=== PATIENT | male | born 1965 | race Caucasian/White ===

== ENCOUNTER 2025-11-21 01:16 | Day surgery (SDC) | payer OTHER, SELFPAY ==
[2025-10-30 09:09] VITALS: BMI 28.5
--- OUTSIDE RECORDS SUMMARY | 2025-11-21 01:19 | XMS_ITS | Encounter Summary ---
Author Organization [facility] Address [address] [place] [address] Care Team Providers Care Installer Metal Flooring Name Role Phone Rosas Crespo SNUBBER Primary Care Provider + Encounter Details Date Type Department Care Team (Latest Contact Info) Description 09/28/2018 Abstract [facility] James MD Social History Tobacco Use Types Packs/Day Years Used Date Smoking Tobacco: Never Assessed Sex and Gender Information Value Date Recorded Sex Assigned at Not on file Legal Sex Male 8:27 PM CDT Gender Identity Not on file Sexual Orientation Not on file documented as of this encounter Plan of Treatment Not on file documented as of this encounter Visit Diagnoses Not on filedocumented in this encounter Care Teams Installer Metal Flooring Relationship Specialty Start Date End Date Rosas Crespo NP [facility] [place] [address] PCP - General UNKNOWN PHYSICIAN SPECIALTY 06/25/23 documented as of this encounter
--- OUTSIDE RECORDS SUMMARY | 2025-11-21 01:19 | XMS_ITS | Clinical Summary ---
Author Organization [facility] Address [address] [place] [address] Care Team Providers Care Correctional Substance Abuse Counselor Name Role Phone Rosas Crespo ASSISTANT SIGNAL MAINTAINER Primary Care Provider + Social History Tobacco Use Types Packs/Day Years Used Date Smoking Tobacco: Never Assessed Sex and Gender Information Value Date Recorded Sex Assigned at Not on file Legal Sex Male 8:27 PM CDT Gender Identity Not on file Sexual Orientation Not on file Last Filed Vital Signs Vital Sign Reading Time Taken Comments Blood Pressure 130/90 04/12/2013 5:07 PM CDT Pulse 77 04/12/2013 5:07 PM CDT Temperature - - Respiratory Rate - - Oxygen Saturation - - Inhaled Oxygen Concentration - - Weight 90.7 kg (200 lb) 04/12/2013 5:07 PM CDT Height 180.3 cm (5' 11) 04/12/2013 5:07 PM CDT Body Mass Index 27.89 04/12/2013 5:07 PM CDT Plan of Treatment Health Maintenance Due Date Last Done Comments Colorectal Cancer Screening Colonoscopy (10 Years) 1965 Annual Physical 1968 Hepatitis C 1983 DTaP, Tdap and Td Vaccines (2 - Tdap) 03/16/1990 03/16/1980 Pneumococcal Vaccine: 50+ Years (1 of 1 - PCV) 2015 Zoster Vaccines (1 of 2) 2015 COVID-19 Vaccine (6 - season) 2025 08/10/2022, 08/07/2021, 07/10/2021, Additional history exists Influenza Adult (#1) 2025 08/10/2022, 08/31/20 18 Hepatitis A Vaccines Aged Out No long er eligible based on patient's age to complete this topic Meningococcal B Vaccine Aged Out No l onger eligible based on patient's age to complete this topic Meningococcal Vaccine Aged Out No brisa sahra eligible based on patient's age to complete this topic RSV Immunizations Under 20 Months Aged Out No longer eligible based on patient's age to complete this topic Insurance Care Teams Correctional Substance Abuse Counselor Relationship Specialty Start Date End Date Rosas Crespo NP [facility] [place] [address] PCP - General UNKNOWN PHYSICIAN SPECIALTY 06/25/23
--- OUTSIDE RECORDS SUMMARY | 2025-11-21 01:19 | XMS_ITS | Clinical Summary ---
Author Organization [facility] [employer] [facility] Address [address] [place] [address] Care Team Providers Care Manual Winder Name Role Phone Unavailable Primary Care Provider Unavailabl e Social History Tobacco Use Types Packs/Day Years Used Date Smoking Tobacco: Never Assessed Sex and Gender Information Value Date Recorded Sex Assigned at Not on file Legal Sex Male 12:32 PM EST Gender Identity Not on file Sexual Orientation Not on file Plan of Treatment Not on file Medical Devices Not on file
--- OUTSIDE RECORDS SUMMARY | 2025-11-21 01:19 | XMS_ITS | Clinical Summary ---
Author Organization [facility] Address [address] [place] [address] Care Team Providers Care Burner Machine Operator Name Role Phone [facility] Primary Care Provider Allergies No known active allergies Medications amLODIPine (NORVASC) 2.5 mg tablet Take 1 tablet (2.5 mg total) by mouth daily 10/28/2022 Active atorvastatin (LIPITOR) 40 mg tablet 10/27/2022 Active dicyclomine (BENTYL) 20 mg tablet TAKE 2 TABLET BY MOUTH EVERY MORNING AND 1 TABLET BY MOUTH EVERY EVENING 10/31/2022 Active finasteride (PROSCAR) 5 mg tablet 10/08/2022 Active hydroCHLOROthia zide (HYDRODIURIL) 25 mg tablet 10/27/2022 Active lisinopriL (PRINIVIL,ZESTR IL) 20 mg tablet 10/27/[address] (PROTONIX) 40 mg EC tablet 11/25/2022 Active gabapentin (NEURONTIN) 300 mg capsuleIndicati ons:Neuropathic Pain Take 1 capsule (300 mg total) by mouth 3 (three) times a day 90 capsule 1 12/16/2022 Active traMADoL (ULTRAM) 50 mg tablet Take 1 tablet (50 mg total) by mouth 4 (four) times a day as needed for pain 28 tablet 01/26/2023 Active alfuzosin HCl (ALFUZOSIN ORAL) Active docusate sodium (COLACE) 100 mg capsule Active ibuprofen (ADVIL,MOTRIN) 800 mg tablet 05/19/2023 Activ e cyclobenzaprine (FLEXERIL) 10 mg tablet TAKE 1 TABLET BY MOUTH THREE TIMES DAILY FOR 3 DAYS NEEDED FOR SPASM 05/19/2023 Active traMADoL (ULTRAM) 50 mg tablet Take 1 tablet (50 mg total) by mouth every 6 (six) hours as needed for pain for up to 10 days 20 tablet 07/15/2023 Active Active Problems Problem Noted Date Diagnosed Date Arthralgia of shoulder 04/23/2016 Surgical History Surgery Date Site/Laterality Comments KNEE ARTHROSCOPY W/ LATERAL RELEASE FLUORO GUIDED INJECTION SHOULDER RIGHT 07/31/2023 [facility] Medical History Medical History Date Comments GERD (gastroesophageal reflux disease) over 25 y ears Hypertension +/- 14 or 15 years Sleep apnea 7-8 years Family History Medical History Relation Name Comments Cancer Father melanoma Family history of malignant neoplasm - (Added by TW Conv) Hypertension Mother hbp Cancer Other Family history of malignant neoplasm - Relation: Grandparent (Added by TW Conv) Cancer Paternal Grandfather colon Relation Name Status Comments Father melanoma Mother hbp Other Paternal Grandfather colon Social History Tobacco Use Types Packs/Day Years Used Date Smoking Tobacco: Never Smokeless Tobacco: Never Tobacco Cessation:Counseling Given: Not Answered Personal Safety Answer Date Recorded Getting School Help Needed Not on file 07/31 Sex and Gender Information Value Date Recorded Sex Assigned at Not on file 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 Gender Identity Not on file Sexual Orientation Not on file Last Filed Vital Signs Vital Sign Reading Time Taken Comments Blood Pressure 142/86 07/31/2023 10:20 AM CDT Pulse 90 07/31/2023 10:20 AM CDT Temperature - - Respiratory Rate 20 07/31/2023 10:20 AM CDT Oxygen Saturation 97% 07/31/2023 10:20 AM CDT Inhaled Oxygen Concentration - - Weight - - Height - - Body Mass Index - - Plan of Treatment Health Maintenance Due Date Last Done Comments Colon Cancer Screening-Colonoscopy 1965 Depression Screening 1965 Hepatitis C Screening 1965 Prostate Cancer Screening-PSA 1965 Hepatitis B Screening 1983 Regular Well Visit/Exam 18-64 1983 DTaP/Tdap/Td Vaccine (2 - Tdap) 03/16/1990 03/16/1980 Zoster Vaccine (1 of 2) 2015 Covid-19 Vaccine ( season) 2025 08/10/2022, 08/07/2021, 07/10/2021, Additional history exists Influenza Vaccine (#1) 2025 08/10/2022, 2017 Pneumococcal vaccine <65 Aged Out No longer eligible based on patient's age to complete this topic Insurance [facility] Care Teams Burner Machine Operator Relationship Specialty Start Date End Date Base, [facility] [address] [place] [address] PCP - General 10/27/22
[2025-11-21 09:16] VITALS: BP 150/95; PULSE 72; RESP 16; TEMP 36.2; O2SAT 99
[2025-11-21 09:17] VITALS: BMI 28.4
[2025-11-21] MEDS: LACTATED RINGERS 1,000 ML 150 ML IV CONT (09:23)
--- NOTE | 2025-11-21 09:27 | WPDANESEPPF ---
Anes - Initial Pre Proc Eval Procedure: Operation Date: 11/21/25 10:30 Proposed Procedures p EGD & Screening Colonoscopy - Geovany Vaca MD Date/Time: 11/21/25 09:27 Surgeon: Geovany Vaca MD Pre Op Diagnosis: Gastro-esophageal reflux disease without esophagit Patient Data Age: 59 Gender: M Height: 1.8 m Weight: 92.5 kg Last Vital Signs Temp 36.2 C L 11/21/25 09:16 Pulse 72 11/21/25 09:16 Resp 16 11/21/25 09:16 BP 150/95 H 11/21/25 09:16 Pulse Ox 99 11/21/25 09:16 O2 Del Method Room Air 11/21/25 09:16 Allergies Allergy/AdvReac Type Severity Reaction Status Date / Time No Known Allergies Allergy Unknown Verified 11/21/25 09:13 Home Medications ?Medication ?Instructions ?Recorded ?Confirmed ?Type atorvastatin 40 mg tablet 40 mg PO DAILY 10/30/25 11/21/25 History dicyclomine 20 mg tablet 40 mg PO BID 10/30/25 11/21/25 History finasteride 5 mg tablet 5 mg PO DAILY 10/30/25 11/21/25 History fluoxetine 10 mg capsule 40 mg PO DAILY 10/30/25 11/21/25 History lisinopril 20 1 tablet PO BID 10/30/25 11/21/25 History mg-hydrochlorothiazide 12.5 mg tablet pantoprazole 40 mg tablet,delayed 40 mg PO BID 10/30/25 11/21/25 History release Patient hx anesthesia problems: none Family hx anesthesia problems: none Results Review: All pre-operative results and documents have been reviewed as part of the pre-operative evaluation. [facility] Past Medical History Medical History (Updated 11/21/25 @ 09:28 by Luis Lau DO) GERD (gastroesophageal reflux disease) ZION (obstructive sleep apnea) Hypertension Hyperlipidemia Family History Family History (System 10/09/22 @ 15:21 by Shefali Anna) Grandparent Carcinoma of colon Father Family history of malignant melanoma Social History Social History (Updated 11/21/25 @ 09:31 by Luis Lau DO) Smoking status: Never smoker Alcohol intake: current Alcohol use details: 2-3 most days Substance use type: does not use Living arrangements: with family Spiritual care concerns: No Anes - Eval Final PreProcedure Day of Procedure 11/21/25 09:27 Patient weight: overweight Heart: regular rate and rhythm Lungs: clear to auscultation Airway: Mallampati scale class II Neurological: alert and oriented Last oral intake: >/= 8 hours ASA classification: III Emergent: no Anesthetic plan: proceed Anesthesia type and monitoring: general GIVS and standard monitoring Results Review: All pre-operative results and documents have been reviewed as part of the pre-operative evaluation. Informed Consent: The patient's anesthetic plan and its attendant risks and benefits were discussed with the patient/family/POA. Questions were solicited and answers provided to the satisfaction of the patient/family/POA.
--- NOTE | 2025-11-21 09:37 | PM.HPGS ---
History of Present Illness History of Present Illness Consent: Risks, benefits, and alternatives have been discussed and questions answered. Patient agrees to proceed with procedure. Chief complaint: Gastro-esophageal reflux disease without esophagit Narrative: Elmer Snow Jr. is a 59 year old male with a history of chronic GERD. Patient also had history of colonic cancer and colonic polyps in the past. Review of Systems Review of Systems: All 11 of your symptoms and negative except the ones mentioned in the H&P. [facility] Past Medical History Medical History (Updated 11/21/25 @ 09:41 by Juan Whaley MD) History of colon cancer GERD (gastroesophageal reflux disease) ZION (obstructive sleep apnea) Hypertension Hyperlipidemia Family History Family History (System 10/09/22 @ 15:21 by Shefali Anna) Grandparent Carcinoma of colon Father Family history of malignant melanoma Social History Social History (Updated 11/21/25 @ 09:31 by Luis Lau, ) Smoking status: Never smoker Alcohol intake: current Alcohol use details: 2-3 most days Substance use type: does not use Living arrangements: with family Spiritual care concerns: No Meds Home Medications and Allergies Home Medications ?Medication ?Instructions ?Recorded ?Confirmed ?Type atorvastatin 40 mg tablet 40 mg PO DAILY 10/30/25 11/21/25 History dicyclomine 20 mg tablet 40 mg PO BID 10/30/25 11/21/25 History finasteride 5 mg tablet 5 mg PO DAILY 10/30/25 11/21/25 History fluoxetine 10 mg capsule 40 mg PO DAILY 10/30/25 11/21/25 History lisinopril 20 1 tablet PO BID 10/30/25 11/21/25 History mg-hydrochlorothiazide 12.5 mg tablet pantoprazole 40 mg tablet,delayed 40 mg PO BID 10/30/25 11/21/25 History release Allergies Allergy/AdvReac Type Severity Reaction Status Date / Time No Known Allergies Allergy Unknown Verified 11/21/25 09:13 Vital Signs Vital Signs - 24 hr 11/21/25 09:16 Temperature 97.1 F L Pulse Rate 72 Respiratory Rate 16 Blood Pressure 150/95 H Pulse Oximetry 99 Oxygen Delivery Room Air Exam Narrative: Patient is lying comfortably in bed. Const: General: comfortable HENMT: Face/Nose/Sinus: Normal nares present Other: HEENT within normal. Neck: Neck: supple Chest: Other: Clear to auscultation. Resp: Auscultation: clear to auscultation bilaterally Cardio: Rate: regular rate (Regular S1-S2) GI: GI Palp: Yes Soft to palpation Auscultation: normal bowel sounds Skin: General skin exam: normal color Assessment and Plan Assessment and plan (1) Chronic GERD: Code(s): K21.9 - Gastro-esophageal reflux disease without esophagitis Status: Acute Plan 59-year-old male with history of chronic GERD. Patient also had history of colon cancer in the past and had a multiple colonoscopy with polyp removed from the colon. He is here for EGD and colonoscopy today.
[2025-11-21] MEDS: BENZOCAINE (*SP) 60 ML SPRAY CAN (HURRICAINE) 1 SPRAY MUCOUS MEM (09:42)
--- NOTE | 2025-11-21 09:57 | SUR.OPER ---
EGD ended 952 colonoscopy started 956
--- NOTE | 2025-11-21 10:04 | S_PTH ---
PATIENT: Elmer Snow Jr. LOC: [facility] Blum#:[id number] AGE/SX: 59/M ROOM: RE11/21/[address]: Geovany Vaca MD : 1965 BED: DIS: 11/21/2025 SPEC #: [id number] RECD: 11/21/25 10:32 STATUS: ELLIOTT REEliot #: [id number] JUDITH: 11/21/25 10:[address]: Juan Whaley DEPT: [facility] Surgical RECD BY: Elías Mondragon ENTERED: 11/21/25 10:33 SP TYPE: Surgical OTHR DR: Geovany Vaca MD [facility] Tissues: A - Biopsy B - Biopsy C - Gastric Polyp D - Colon Polypectomy Procedures: Hematoxylin and Eosin Stain Gross and Microscopic Level 4
[2025-11-21 10:10] VITALS: BP 131/77; PULSE 66; RESP 16; O2SAT 97
[2025-11-21 10:20] VITALS: BP 135/86; PULSE 59; RESP 13; O2SAT 98
[2025-11-21 10:30] VITALS: BP 140/91; PULSE 62; RESP 20; O2SAT 99
== END 2025-11-21 10:40 | disposition home or self-care (01) ==
PROVIDERS: Internal Medicine Gastroenterology; Visit Provider Internal Medicine Gastroenterology
PROC: 0DJ08ZZ Inspection of Upper Intestinal Tract, Via Natural or Artificial Opening Endoscopic (ICD-10-PCS; CPT 45378; principal; 2025-11-21 10:30)
DX: Z08 Encounter for follow-up examination after completed treatment for malignant neoplasm (principal); K63.5 Polyp of colon; K21.9 Gastro-esophageal reflux disease without esophagitis; K31.7 Polyp of stomach and duodenum; Z85.038 Personal history of other malignant neoplasm of large intestine
CPT/HCPCS: 45385; 43239; 88305; J2003; J2704; J7120